=== PATIENT | male | born 1990 | race Caucasian/White ===

== ENCOUNTER 2017-11-01 14:39 | Emergency (ER) | payer MEDICAID ==
[~2017-11-01] VITALS: Ht 170.2 cm; Wt 79.0 kg
[2017-11-01 15:17] VITALS: BP 139/78
[2017-11-01] MEDS ORDERED: TETANUS, DIPHTHERIA, PERTUSSIS VAC/PF 0.5ML (>7YR OLD) IM ONE (16:00)
[2017-11-01] MEDS ORDERED: BACITRACIN/POLYMYXIN B SULFATE OINT 15GM TOP ONE (16:00)
[2017-11-01] MEDS ORDERED: BACITRACIN ZINC OINT UDPKT TOP ONE (16:15)
== END 2017-11-01 16:37 | disposition home or self-care (01) ==
LOC: ER 14:51
DX: S60.511A Abrasion of right hand, initial encounter (principal); F12.10 Cannabis abuse, uncomplicated; V43.52XA Car driver injured in collision with other type car in traffic accident, initial encounter; Y93.89 Activity, other specified; Y92.488 Other paved roadways as the place of occurrence of the external cause
CPT/HCPCS: 99283; A4217; Z7610; 90715